=== PATIENT | male | born 1995 | race Caucasian/White ===

== ENCOUNTER 2021-11-09 06:10 | Emergency (ER) | payer BC ==
[2021-11-09] MEDS ORDERED: Sodium Chloride 0.9% 10 ML Syringe FLUSH PRN (07:39)
[2021-11-09] MEDS ORDERED: Sodium Chloride 0.9% 1,000 ML IV STA (07:39)
== END 2021-11-09 09:58 | disposition home or self-care (01) ==
LOC: JD.ED 06:10
DX: R19.7 Diarrhea, unspecified (principal)
CPT/HCPCS: 36415; 80053; 83690; 85025; 87045; 87046; 87493; 87899; 96360; 99284; J3490; J7030